=== PATIENT | female | born 1955 | race Caucasian/White ===

== ENCOUNTER 2017-11-21 17:24 | Emergency (ER) | payer OTHER ==
[~2017-11-21] VITALS: Ht 170.2 cm; Wt 72.6 kg
--- NOTE | 2017-11-21 18:49 | ER Report ---
History and Physical Time Seen By MD: 18:48 HPI/ROS CHIEF COMPLAINT: Left arm laceration HISTORY OF PRESENT ILLNESS: 62-year-old female patient presents to the emergency room with complaint of a laceration to the left forearm. Patient states that she was in the garage doing some things. She states that she tripped and fell. States when she did she hit her left forearm on a social's. She states that she had significant amounts of bleeding. When she does have deep wound was she knew she had come in here for further evaluation and treatment. She denies having any numbness or tingling to her hand. She denies taking any medication for this. She states that she believes that her tetanus shot is up-to-date, however she is unsure when the last time she had it. REVIEW OF SYSTEMS: Respiratory: No cough, no dyspnea. Cardiovascular: No chest pain, no palpitations. Gastrointestinal: No vomiting, no abdominal pain. Musculoskeletal: No back pain. Allergies: Coded Allergies: No Known Drug Allergies (Unverified , 11/21/17) Home Meds No Active Prescriptions or Reported Meds Past Medical/Surgical History Patient has a past medical history of vision problems. Patient has surgical history of right hand surgery. Reviewed Nurses Notes: Yes Constitutional Vital Sign - Last 24 Hours 11/21/17 11/21/17 18:46 18:55 Temp 98.5 Pulse 83 B/P (MAP) 148/98 (115) 148/98 Pulse Ox 96 O2 Delivery Room Air Physical Exam General Appearance: The patient is alert, has no immediate need for airway protection and no current signs of toxicity. Respiratory: Chest is non tender, lungs are clear to auscultation. Cardiac: regular rate and rhythm Musculoskeletal: Neck: Neck is supple and non tender. Extremities have full range of motion and are non tender. Skin: No rashes or lesions. Recent has 3 similar laceration to the left forearm , does go into the subcutaneous tissue. DIFFERENTIAL DIAGNOSIS: After history and physical exam differential diagnosis was considered for laceration. Medical Decision Making ED Course/Re-evaluation ED Course Patient was managed in exam room, history and physical were obtained. Differential diagnoses were considered. On examination patient has a laceration to the left forearm. Does go into the subcutaneous tissue. The area was anesthetized, cleaned and repaired described below. Patient tolerated repair without any difficulties. The wound was cleaned and dressed. We will go ahead and discharge patient home at this time. She is to follow-up in 7-10 days to have sutures removed. She is to monitor for any signs of infection. Patient verbalized understanding and agreement. Procedure: Laceration repair. Verbal consent was obtained from the patient. The 3 cm laceration on the left forearm was anesthetized in the usual fashion. The wound was scrubbed, draped and explored to its base with a gloved finger. There were no deep structures involved. No tendon injury was identified. The wound was repaired with 8 simple interrupted sutures using 5-0 Prolene, I did place one subcuticular suture using 4-0 Vicryl. The wound repair was simple. The procedure was performed by myself. Decision to Disposition Date: Nov 21, 2017 Decision to Disposition Time: 19:31 Depart Departure Latest Vital Signs Vital Signs Date Time Temp Pulse Resp B/P (MAP) Pulse Ox O2 Delivery O2 Flow Rate FiO2 11/21/17 18:55 148/98 11/21/17 18:46 98.5 83 96 Room Air Impression: Primary Impression: Laceration Condition: Improved Disposition: HOME OR SELF-CARE New Scripts No Active Prescriptions or Reported Meds Patient Instructions: Laceration (ED) Additional Instructions: Keep wound dry for 48 hours. Follow up with your primary care provider in the next 7-10 days to have sutures removed. Monitor for signs of infection; redness, swelling, heat, discharge, increasing pain or red streaking. Take Tylenol or Ibuprofen as needed for pain. Return to the ER with any concerns. You may change dressing as needed. BETTY DIAZ Nov 21, 2017 18:49
[2017-11-21 18:55] VITALS: BP 148/98
[2017-11-21] MEDS ORDERED: DIPHTH/TETANUS/ACEL. PERTUSSIS IM ONLY ONE (19:00)
== END 2017-11-21 19:52 | disposition home or self-care (01) ==
LOC: ER 17:29
DX: S51.812A Laceration without foreign body of left forearm, initial encounter (principal); W26.9XXA Contact with unspecified sharp object(s), initial encounter
CPT/HCPCS: 90471; 90715; 99282